=== PATIENT | female | born 2000 | race Two or more races ===

== ENCOUNTER 2024-07-18 03:14 | Emergency (ER) | payer BC, OTHER, SELFPAY ==
[2024-07-18] VITALS (12 sets, daily range): BP systolic 98–177; BP diastolic 64–90; PULSE 76–103; RESP 18; TEMP 36.6; O2SAT 91–100; BMI 25.6
[2024-07-18] MEDS: ondansetron 2 mg/ML SDV 2 mL 4 MG IVP (03:40)
--- NOTE | 2024-07-18 03:47 | W.ED.ABDPA2 ---
Documented by User: Fatuma Maloney MD 07/18/24 05:39 HPI - Abdominal Pain General: Chief Complaint: Abdominal Pain Stated Complaint: Pain in R side kidney area N/V,bleeding BM,fever Time Seen by Provider: 07/18/24 03:24 History of Present Illness: 24-year-old female who presents emergency room with nausea vomiting diarrhea and abdominal pain. She had some vomiting and she thought she might have some bright red blood in it. She had some right flank pain. She has had some diarrhea. She says she think she had a fever. She is afebrile here. Related Data Date of Last Menstrual Period: 06/20/24 Previous Rx's ?Medication ?Instructions ?Recorded cephalexin 500 mg capsule 500 mg PO TID #21 caps 06/09/24 ciprofloxacin HCl 500 mg tablet 500 mg PO BID #14 tabs 07/18/24 Allergies Allergy/AdvReac Type Severity Reaction Status Date / Time No Known Allergies Allergy Verified 07/18/24 03:28 Review of Systems Narrative: Constitutional symptoms: Negative except as documented in HPI. Skin symptoms: Negative except as documented in HPI. Eye symptoms: Negative except as documented in HPI. ENMT symptoms: Negative except as documented in HPI. Respiratory symptoms: Negative except as documented in HPI. Cardiovascular symptoms: Negative except as documented in HPI. Gastrointestinal symptoms: Negative except as documented in HPI. Genitourinary symptoms: Negative except as documented in HPI. Musculoskeletal symptoms: Negative except as documented in HPI. Neurologic symptoms: Negative except as documented in HPI. Psychiatric symptoms: Negative except as documented in HPI. Endocrine symptoms: Negative except as documented in HPI. PFS ED PFSH: Social History Smoking and tobacco/nicotine status: never used tobacco/nicotine Female Reproductive History: Date of last menstrual period: 06/20/24 Physical Exam Narrative: EXAM NARRATIVE: General: Alert, no acute distress. Skin: Warm, dry. Head: Normocephalic, atraumatic. Neck: Supple, trachea midline. Eye: Extraocular movements are intact. Ears, nose, mouth and throat: mucosa moist. Cardiovascular: Regular, Normal peripheral perfusion. Respiratory: Lungs are clear to auscultation, respirations are non-labored, breath sounds are equal, Symmetrical chest wall expansion. Gastrointestinal: Soft, Nontender, Non distended Musculoskeletal: Normal ROM, no deformity. Neurological: Alert and oriented, No focal neurological deficit observed. Psychiatric: Cooperative, appropriate mood & affect. Course Vital Signs: Vital signs: Vital Signs Temperature 97.8 F 07/18/24 03:23 Pulse Rate 89 07/18/24 06:30 Respiratory Rate 18 07/18/24 03:26 Blood Pressure 108/73 07/18/24 06:30 Pulse Oximetry 100 07/18/24 06:30 Oxygen Delivery Me thod Room Air 07/18/24 03:23 MDM - Abdominal Pain Medical Decision Making Medical decision making: Differential diagnosis for this patient with nausea and vomiting including but not limited to and based on the above HPI, review of systems and physical exam: Urinary tract infection. Appendicitis. Cholecystitis. Colitis. small bowel obstruction. crohn's flare. pancreatitis. gastritis. peptic ulcer. cyclic vomiting. Viral illness. Influenza. COVID. Patient care transition Dr. Fofana at shift change. Lab Data 07/18/24 03:34 07/18/24 03:34 Labs/Radiology: Radiology Impressions Abdomen/Pelvis CT 07/18/24 04:08 IMPRESSION: No acute findings. Laboratory Results WBC 11.84 10^3/uL (3.29-11.43) H 07/18/24 03:34 RBC 4.35 10^6/uL (3.85-5.65) 07/18/24 03:34 Hgb 12.20 g/dL (11.27-16.99) 07/18/24 03:34 Hct 35.0 % (36-47) L 07/18/24 03:34 MCV 80.5 fl (85-98) L 07/18/24 03:34 MCH 28.0 pg (27-33) 07/18/24 03:34 MCHC 34.9 g/dL (30-55) 07/18/24 03:34 RDW 14.8 % (12.1-15.1) 07/18/24 03:34 Plt Count 370 10^3/cmm (157-399) 07/18/24 03:34 MPV 9.8 fL (7.4-10.4) 07/18/24 03:34 Neut % (Auto) 76.6 % 07/18/24 03:34 Lymph % (Auto) 15.4 % 07/18/24 03:34 Canadian % (Auto) 6.3 % 07/18/24 03:34 Eos % (Auto) 0.8 % 07/18/24 03:34 Baso % (Auto) 0.3 % 07/18/24 03:34 Neut # (Auto) 9.06 10^3/uL (1.8-7.7) H 07/18/24 03:34 Lymph # (Auto) 1.8 10^3/uL (0.8-4.8) 07/18/24 03:34 Canadian # (Auto) 0.8 10^3/uL (0.2-0.9) 07/18/24 03:34 Eos # (Auto) 0.1 10^3/uL (0.0-0.8) 07/18/24 03:34 Baso # (Auto) 0.0 10^3/uL (0.0-0.1) 07/18/24 03:34 Nucleated RBC % (auto) 0 % 07/18/24 03:34 Nucleated RBCs # 0.0 /100WBC 07/18/24 03:34 Sodium 140 mmol/L (136-145) 07/18/24 03:34 Potassium 3.6 mmol/L (3.5-5.1) 07/18/24 03:34 Chloride 106 mmol/L (98-107) 07/18/24 03:34 Carbon Dioxide 23 mmol/L (22-29) 07/18/24 03:34 Anion Gap 14.6 (5-19) 07/18/24 03:34 BUN 15 mg/dL (6-20) 07/18/24 03:34 Creatinine 0.9 mg/dL (0.5-0.9) 07/18/24 03:34 GFR Calculation 76.9 mL/min (90-130) L 07/18/24 03:34 Glucose 118 mg/dL (65-115) H 07/18/24 03:34 Calculated Osmolality 292 mOsm/kg (285-295) 07/18/24 03:34 Calcium 9.1 mg/dL (8.5-10.5) 07/18/24 03:34 Total Bilirubin 0.4 mg/dL (0.15-1.2) 07/18/24 03:34 AST 16 U/L (0-32) 07/18/24 03:34 ALT 13 U/L (0-33) 07/18/24 03:34 Alkaline Phosphatase 51 U/L (35-105) 07/18/24 03:34 Total Protein 7.3 g/dL (6.6-8.7) 07/18/24 03:34 Albumin 4.5 g/dL (3.5-5.2) 07/18/24 03:34 Globulin 2.8 g/dL (1.3-4.6) 07/18/24 03:34 Lipase 32 U/L (13-60) 07/18/24 03:34 HCG, Qual Negative (Negative) 07/18/24 03:35 Urine Color Yellow (Yellow) 07/18/24 03:35 Urine Appearance Clear (CLEAR) 07/18/24 03:35 Urine pH 5 (5-7) 07/18/24 03:35 Ur Specific [place] 1.020 (1.005-1.030) 07/18/24 03:35 Urine Protein Trace (Negative) H 07/18/24 03:35 Urine Glucose (UA) Norm (Normal) 07/18/24 03:35 Urine Ketones Negative (Negative) 07/18/24 03:35 Urine Blood 3+ (Negative) A 07/18/24 03:35 Urine Nitrate Negative (Negative) 07/18/24 03:35 Urine Bilirubin Neg (Negative) 07/18/24 03:35 Urine Urobilinogen Neg mg/dL (Negative) 07/18/24 03:35 Ur Leukocyte Esterase Negative (Negative) 07/18/24 03:35 Urine RBC 51-100 /hpf (0-2) H 07/18/24 03:35 Urine WBC 0-5 /hpf (0-5) 07/18/24 03:35 Ur Squamous Epith Cells 0-5 /hpf (0-5) 07/18/24 03:35 Amorphous Sediment Not Reportable 07/18/24 03:35 Urine Bacteria None seen /hpf (NONE) 07/18/24 03:35 Hyaline Casts 0.81 /lpf 07/18/24 03:35 Influenza A (PCR) Negative (Negative) 07/18/24 03:44 Influenza Type B (PCR) Negative (Negative) 07/18/24 03:44 RSV (PCR) Negative (Negative) 07/18/24 03:44 SARS-CoV-2 (PCR) Negative (Negative) 07/18/24 03:44 Discharge Plan Discharge Patient Disposition: Home Clinical Impression: Cystitis Condition: Stable Prescriptions: New ciprofloxacin HCl 500 mg tablet 500 mg PO BID Qty: 14 0RF No Action cephalexin 500 mg capsule 500 mg PO TID Qty: 21 0RF Discharge Orders: Discharge ED (Routine); Ordered 07/18/24 Ordered By: Mahesh Fofana Discharge Diet: Usual diet Discharge Activity: Resume usual activity Patient Instructions: Opioid Safety, Pain Management, Urinary Tract Infection in Women (ED) Activity Restrictions/Additional Instructions: Thank you for choosing [facility] for your healthcare needs today. It is very important that you follow up as instructed or that you return to the Emergency Department should you have concerns or if your condition changes or worsens in any way. You were seen in the emergency room with complaint of abdominal and flank pain your CT was normal urine shows some blood suspicious for bladder infection given the history you gave of pain with urination and the flank pain. You are started on antibiotics Cipro 500 mg 1 tab pill twice a day for 7 days. Follow-up with your primary care doctor regarding the blood you had noticed in the stool, recommend you complete the workup that they had initiated for this issue. If you have worsening or changes symptoms recheck Print Language: Citizen Of [place] Sign Out Sign Out Data: Patient Sign Out occurred on 07/18/24 at 05:44. Patient's care was discussed, and care was transferred from Fatuma Maloney MD to Mahesh Fofana DO. Coding Level of Care Code ED Assurance Analyst for Chg Fwd Documented by User: Mahesh Fofana DO 07/18/24 06:58 HPI - Abdominal Pain General: Chief Complaint: Abdominal Pain Stated Complaint: Pain in R side kidney area N/V,bleeding BM,fever Time Seen by Provider: 07/18/24 03:24 Related Data Previous Rx's ?Medication ?Instructions ?Recorded cephalexin 500 mg capsule 500 mg PO TID #21 caps 06/09/24 ciprofloxacin HCl 500 mg tablet 500 mg PO BID #14 tabs 07/18/24 Allergies Allergy/AdvReac Type Severity Reaction Status Date / Time No Known Allergies Allergy Verified 07/18/24 03:28 [facility] ED PFSH: Social History Smoking and tobacco/nicotine status: never used tobacco/nicotine Course Vital Signs: Vital signs: Vital Signs Temperature 97.8 F 07/18/24 03:23 Pulse Rate 89 07/18/24 06:30 Respiratory Rate 18 07/18/24 03:26 Blood Pressure 108/73 07/18/24 06:30 Pulse Oximetry 100 07/18/24 06:30 Oxygen Delivery Me thod Room Air 07/18/24 03:23 MDM - Abdominal Pain Medical Decision Making Medical decision making: Differential diagnosis for this patient with nausea and vomiting including but not limited to and based on the above HPI, review of systems and physical exam: Urinary tract infection. Appendicitis. Cholecystitis. Colitis. small bowel obstruction. crohn's flare. pancreatitis. gastritis. peptic ulcer. cyclic vomiting. Viral illness. Influenza. COVID. Patient care transition Dr. Fofana at shift change. Care assumed at change of shift. Patient has hematuria. She also reports to me frequency of urination and dysuria on exam she has right-sided CVA tenderness. Her CT did not show any acute pathology. There is no evidence of renal stones normal bowel bladder gallbladder liver. Patient denies any vaginal discharge. She has been having some blood in the stool occasionally a noticeable amount and is getting an outpatient workup through her primary care doctor. She has not noticed any big change in that recently. She is about to get her period to start in the next week or so. 2 weeks ago she was seen and evaluated for possible STDs because of a history of unprotected intercourse with a partner. She has not had any intercourse since then. She is not having any vaginal discharge at this time. Serum qualitative hCG was negative. Based on her history and exam findings along with the hematuria we will go ahead and treat her for a bladder infection. She does have very slight elevation in her white count. Will start her on Cipro 500 twice daily for 7 days. Medical Records I reviewed the patient's medical records. Lab Data I reviewed the patient's lab results. 07/18/24 03:34 07/18/24 03:34 Labs/Radiology: Radiology Impressions Abdomen/Pelvis CT 07/18/24 04:08 IMPRESSION: No acute findings. Laboratory Results WBC 11.84 10^3/uL (3.29-11.43) H 07/18/24 03:34 RBC 4.35 10^6/uL (3.85-5.65) 07/18/24 03:34 Hgb 12.20 g/dL (11.27-16.99) 07/18/24 03:34 Hct 35.0 % (36-47) L 07/18/24 03:34 MCV 80.5 fl (85-98) L 07/18/24 03:34 MCH 28.0 pg (27-33) 07/18/24 03:34 MCHC 34.9 g/dL (30-55) 07/18/24 03:34 RDW 14.8 % (12.1-15.1) 07/18/24 03:34 Plt Count 370 10^3/cmm (157-399) 07/18/24 03:34 MPV 9.8 fL (7.4-10.4) 07/18/24 03:34 Neut % (Auto) 76.6 % 07/18/24 03:34 Lymph % (Auto) 15.4 % 07/18/24 03:34 Canadian % (Auto) 6.3 % 07/18/24 03:34 Eos % (Auto) 0.8 % 07/18/24 03:34 Baso % (Auto) 0.3 % 07/18/24 03:34 Neut # (Auto) 9.06 10^3/uL (1.8-7.7) H 07/18/24 03:34 Lymph # (Auto) 1.8 10^3/uL (0.8-4.8) 07/18/24 03:34 Canadian # (Auto) 0.8 10^3/uL (0.2-0.9) 07/18/24 03:34 Eos # (Auto) 0.1 10^3/uL (0.0-0.8) 07/18/24 03:34 Baso # (Auto) 0.0 10^3/uL (0.0-0.1) 07/18/24 03:34 Nucleated RBC % (auto) 0 % 07/18/24 03:34 Nucleated RBCs # 0.0 /100WBC 07/18/24 03:34 Sodium 140 mmol/L (136-145) 07/18/24 03:34 Potassium 3.6 mmol/L (3.5-5.1) 07/18/24 03:34 Chloride 106 mmol/L (98-107) 07/18/24 03:34 Carbon Dioxide 23 mmol/L (22-29) 07/18/24 03:34 Anion Gap 14.6 (5-19) 07/18/24 03:34 BUN 15 mg/dL (6-20) 07/18/24 03:34 Creatinine 0.9 mg/dL (0.5-0.9) 07/18/24 03:34 GFR Calculation 76.9 mL/min (90-130) L 07/18/24 03:34 Glucose 118 mg/dL (65-115) H 07/18/24 03:34 Calculated Osmolality 292 mOsm/kg (285-295) 07/18/24 03:34 Calcium 9.1 mg/dL (8.5-10.5) 07/18/24 03:34 Total Bilirubin 0.4 mg/dL (0.15-1.2) 07/18/24 03:34 AST 16 U/L (0-32) 07/18/24 03:34 ALT 13 U/L (0-33) 07/18/24 03:34 Alkaline Phosphatase 51 U/L (35-105) 07/18/24 03:34 Total Protein 7.3 g/dL (6.6-8.7) 07/18/24 03:34 Albumin 4.5 g/dL (3.5-5.2) 07/18/24 03:34 Globulin 2.8 g/dL (1.3-4.6) 07/18/24 03:34 Lipase 32 U/L (13-60) 07/18/24 03:34 HCG, Qual Negative (Negative) 07/18/24 03:35 Urine Color Yellow (Yellow) 07/18/24 03:35 Urine Appearance Clear (CLEAR) 07/18/24 03:35 Urine pH 5 (5-7) 07/18/24 03:35 Ur Specific [place] 1.020 (1.005-1.030) 07/18/24 03:35 Urine Protein Trace (Negative) H 07/18/24 03:35 Urine Glucose (UA) Norm (Normal) 07/18/24 03:35 Urine Ketones Negative (Negative) 07/18/24 03:35 Urine Blood 3+ (Negative) A 07/18/24 03:35 Urine Nitrate Negative (Negative) 07/18/24 03:35 Urine Bilirubin Neg (Negative) 07/18/24 03:35 Urine Urobilinogen Neg mg/dL (Negative) 07/18/24 03:35 Ur Leukocyte Esterase Negative (Negative) 07/18/24 03:35 Urine RBC 51-100 /hpf (0-2) H 07/18/24 03:35 Urine WBC 0-5 /hpf (0-5) 07/18/24 03:35 Ur Squamous Epith Cells 0-5 /hpf (0-5) 07/18/24 03:35 Amorphous Sediment Not Reportable 07/18/24 03:35 Urine Bacteria None seen /hpf (NONE) 07/18/24 03:35 Hyaline Casts 0.81 /lpf 07/18/24 03:35 Influenza A (PCR) Negative (Negative) 07/18/24 03:44 Influenza Type B (PCR) Negative (Negative) 07/18/24 03:44 RSV (PCR) Negative (Negative) 07/18/24 03:44 SARS-CoV-2 (PCR) Negative (Negative) 07/18/24 03:44 All radiology interpretation(s) finalized by discharge Discharge Plan Discharge Patient Disposition: Home Clinical Impression: Cystitis Condition: Stable Prescriptions: New ciprofloxacin HCl 500 mg tablet 500 mg PO BID Qty: 14 0RF No Action cephalexin 500 mg capsule 500 mg PO TID Qty: 21 0RF Discharge Orders: Discharge ED (Routine); Ordered 07/18/24 Ordered By: Mahesh Fofana Discharge Diet: Usual diet Discharge Activity: Resume usual activity Patient Instructions: Opioid Safety, Pain Management, Urinary Tract Infection in Women (ED) Activity Restrictions/Additional Instructions: Thank you for choosing [facility] for your healthcare needs today. It is very important that you follow up as instructed or that you return to the Emergency Department should you have concerns or if your condition changes or worsens in any way. You were seen in the emergency room with complaint of abdominal and flank pain your CT was normal urine shows some blood suspicious for bladder infection given the history you gave of pain with urination and the flank pain. You are started on antibiotics Cipro 500 mg 1 tab pill twice a day for 7 days. Follow-up with your primary care doctor regarding the blood you had noticed in the stool, recommend you complete the workup that they had initiated for this issue. If you have worsening or changes symptoms recheck Print Language: Citizen Of [place] Sign Out Sign Out Data: Patient Sign Out occurred on 07/18/24 at 05:44. Patient's care was discussed, and care was transferred from Fatuma Maloney MD to Mahesh Fofana DO. Coding Level of Care Code ED Assurance Analyst for Rach Moore
[2024-07-18 03:52] LABS: Basophils % 0.3 %; Eosinophils # 0.1 10^3/uL (0.0-0.8); Eosinophils % 0.8 %; Lymphocytes # 1.8 10^3/uL (0.8-4.8); Lymphocytes % 15.4 %; Mean Corpuscular HGB Conc 34.9 g/dL (30-55); Mean Corpuscular Volume 80.5 fl (85-98); Mean Platelet Volume 9.8 fL (7.4-10.4); Monocytes # 0.8 10^3/uL (0.2-0.9); Monocytes % 6.3 %; Neutrophils # 9.06 10^3/uL (1.8-7.7); Neutrophils % 76.6 %; Nucleated Red Blood Cells % 0 %; Platelet Count 370 10^3/cmm (157-399); Red Blood Count 4.35 10^6/uL (3.85-5.65); Red Cell Distribution Width 14.8 % (12.1-15.1); White Blood Count 11.84 10^3/uL (3.29-11.43)
[2024-07-18 03:56] LABS: HCG Qualitative Urine. Negative (Negative)
[2024-07-18 03:57] LABS: Bacteria Urine None Seen /hpf; Hyaline Casts Urine 0.81 /lpf; RBC Urine 51-100 /hpf (0-2); Squamous Epithelial Cell Urine 0-5 /hpf (0-5); WBC Urine 0-5 /hpf (0-5)
[2024-07-18 04:00] LABS: Bilirubin Urine Neg (Negative); Blood Urine 3+ (Negative); Glucose Urine UA Norm (Normal); Ketones Urine Negative (Negative); Leukocyte Esterase Urine Negative (Negative); Nitrate Urine Negative (Negative); Protein Urine Trace (Negative); Urine Appearance Clear (CLEAR); Urine Color Yellow (Yellow); Urobilinogen Urine Neg (Negative); pH Urine 5 (5-7)
[2024-07-18 04:01] LABS: Add Urine Culture? Yes
--- NOTE | 2024-07-18 04:08 | CTR_ITS ---
PROCEDURE INFORMATION: Exam: CT Abdomen And Pelvis Without Contrast Exam date and time: 07/18/2024 4:17 AM Age: 24 years old Clinical indication: Abdominal pain; Flank; Lower; Additional info: Flank pain TECHNIQUE: Imaging protocol: Computed tomography of the abdomen and pelvis without contrast. Radiation optimization: All CT scans at this facility use at least one of these dose optimization techniques: automated exposure control; mA and/or kV adjustment per patient size (includes targeted exams where dose is matched to clinical indication); or iterative reconstruction. COMPARISON: No relevant prior studies available. RADIATION DOSE METRICS: Total DLP (mGy-cm): 465.26 FINDINGS: Liver: Normal. No mass. Gallbladder and biliary ducts: Normal. No calcified stones. No ductal dilation. Pancreas: Normal. No ductal dilation. Spleen: Normal. No splenomegaly. Adrenal glands: Normal. No mass. Kidneys and ureters: Normal. No hydronephrosis. Stomach and bowel: Unremarkable. No obstruction. No mucosal thickening. Appendix: No evidence of appendicitis. Intraperitoneal space: Small amount of free fluid in the cul-de-sac. Vasculature: Unremarkable. No abdominal aortic aneurysm. Lymph nodes: Unremarkable. No enlarged lymph nodes. Urinary bladder: Unremarkable as visualized. Reproductive: Unremarkable as visualized. Bones/joints: Unremarkable. No acute fracture. Soft tissues: Unremarkable. CT/CT kidney stone [id number] IMPRESSION: No acute findings.
[2024-07-18 04:10] LABS: Alanine Aminotransferase 13 U/L (0-33); Albumin Level 4.5 g/dL (3.5-5.2); Alkaline Phosphatase 51 U/L (35-105); Anion Gap 14.6 (5-19); Aspartate Amino Transferase 16 U/L (0-32); Blood Urea Nitrogen 15 mg/dL (6-20); Calcium 9.1 mg/dL (8.5-10.5); Carbon Dioxide 23 mmol/L (22-29); Chloride 106 mmol/L (98-107); Globulin 2.8 g/dL (1.3-4.6); Glomerular Filtration Rate 76.9 mL/min (90-130); Glucose 118 mg/dL (65-115); Lipase 32 U/L (13-60); Osmolality Calculated 292 mOsm/kg (285-295); Potassium 3.6 mmol/L (3.5-5.1); Sodium 140 mmol/L (136-145); Total Bilirubin 0.4 mg/dL (0.15-1.2); Total Protein 7.3 g/dL (6.6-8.7)
[2024-07-18 04:31] LABS: Influenza A NEGATIVE (Negative); Influenza B NEGATIVE (Negative); Respiratory Syncytial Virus Ce NEGATIVE (Negative); SARS-CoV-2 PCR NEGATIVE (Negative)
== END 2024-07-18 07:16 | disposition home or self-care (01) ==
PROVIDERS: Emergency Medicine; Emergency Provider Family Medicine
DX: N30.90 Cystitis, unspecified without hematuria (principal); Z11.52 Encounter for screening for COVID-19
CPT/HCPCS: 36415; 74176; 80053; 81001; 81025; 83690; 85025; 87086; 87637; 96374; 99285; J2405

== ENCOUNTER → 2024-08-22 10:47 | Outpatient (BNVA) | payer BC, OTHER, SELFPAY | PROVIDERS: PCP Family Medicine; Referring Provider Family Medicine; Visit Provider Internal Medicine Rheumatology | DX: M79.7 Fibromyalgia (principal) | CPT/HCPCS: 36415; 82085; 82306; 82550; 82728; 83540; 83550; 85651; 86140; 86200; 86431; 86480; 86704; 86803; 86812; 87340 ==

== ENCOUNTER 2024-09-06 10:30 | Outpatient (CLI) | payer BC, OTHER, SELFPAY ==
--- NOTE | 2024-09-06 10:45 | US_ITS ---
WS: [id number] Complete ABDOMINAL ULTRASOUND HISTORY: R10.2 - Pelvic and perineal pain COMPARISON: CT 07/18/2024 Liver: 13.7 cm in length. Normal size liver and echogenicity. No bile duct dilatation or mass. Portal Vein: Normal hepatopetal flow with monophasic waveform. Gallbladder: Normally distended gallbladder with no stones or wall thickening. CBD: 0.3 cm Pancreas: Normal size and echogenicity. Right kidney: 9.9 cm x 5.2 x 5.1 cm. Cortex:1.0 cm. Normal size and echogenicity. No hydronephrosis or mass. Left kidney: 10.9 cm x 4.6 cm x 5.0 cm. Cortex: 1.1 cm. Normal size and echogenicity. No hydronephrosis or mass. Spleen: 9.0 cm. Normal size and echogenicity. Aorta and IVC: Unremarkable abdominal aorta and IVC. US/US abdomen complete* [id number] Impression: Normal complete abdomen ultrasound.
--- NOTE | 2024-09-06 11:30 | US_ITS ---
WS: [id number] ULTRASOUND SOFT TISSUES bilateral cervical chains. HISTORY: R59.9 - Enlarged lymph nodes, unspecified COMPARISON: None available. TECHNIQUE: 2-D and color Doppler imaging is submitted. Normal-appearing lymph nodes noted bilaterally along the cervical chains. Normal fatty hilum with no cortical thickening or asymmetry. Central flow to the lymph nodes. US/US soft tissue head neck [id number] IMPRESSION: Normal-appearing bilateral cervical chain lymph nodes.
== END 2024-09-06 10:31 | disposition home or self-care (01) ==
LOC: RAD 10:32
PROVIDERS: PCP Family Medicine; Visit Provider Internal Medicine Rheumatology
DX: R10.2 Pelvic and perineal pain (principal); R59.9 Enlarged lymph nodes, unspecified; M54.2 Cervicalgia
CPT/HCPCS: 76536; 76700

== ENCOUNTER 2025-01-01 09:30 | Emergency (ER) | payer OTHER, SELFPAY ==
[2025-01-01 09:35] VITALS: BP 127/82; PULSE 92; TEMP 36.8; O2SAT 99; BMI 26.4
--- NOTE | 2025-01-01 09:35 | ECG_ITS ---
[email or web address] Test Date: 2025-01-01 Pat Name: Felicia Burton Department: Room: Gender: Female Acute Specialist: : [id number] Requested By: Mahesh Guardado Order Number: [id number] Swathi MD: Nadia Jensen M.D. Measurements Intervals [place] Rate: 87 P: 64 NM: 132 QRS: 58 QRSD: 87 T: 51 QT: 352 QTc: 424 Interpretive Statements SINUS RHYTHM POSSIBLE LEFT ATRIAL ENLARGEMENT [-0.1mV P-WAVE IN V1/V2] LOW QRS VOLTAGE IN PRECORDIAL LEADS [QRS DEFLECTION < 1.0 mV IN CHEST LEADS] No previous ECG available for comparison Electronically Signed On 01-01-2025 13:42:58 CDT by Nadia Jensen M.D. [email or web address]
--- NOTE | 2025-01-01 09:35 | XR_ITS ---
WS: [id number] XR chest 1V portable [id number] REASON FOR EXAM: dyspnea/cough FINDINGS: The heart and mediastinum are within normal limits. Calcified granulomatous disease bilaterally. No acute pulmonary parenchymal or pleural abnormality. Bony thorax is intact without significant focal abnormality. XR/XR chest 1V portable [id number] IMPRESSION: No acute chest abnormality.
--- OUTSIDE RECORDS SUMMARY | 2025-01-01 09:39 | XMS_ITS | Clinical Summary ---
Author Organization [facility] Address [address] [address] Phone Care Team Providers Care Vendor Representatives Name Role Phone Jeff Valentine Primary Care Provider [phone] Allergies No known active allergies Medications lisdexamfetamine (Vyvanse) 30 mg capsule Take 30 mg by mouth 1 (one) time each day in the morning. Active famotidine (Pepcid) 10 mg tablet Take by mouth. Active escitalopram (Lexapro) 20 mg tablet Take 20 mg by mouth 1 (one) time each day. Active hydrOXYzine pamoate (Vistaril) 25 mg capsule Take 25 mg by mouth 3 (three) times a day if needed. Active cyclobenzaprine (Flexeril) 10 mg tablet Take 1 tablet (10 mg total) by mouth 3 (three) times a day for 15 days. 45 tablet 12/12/2023 Active Active Problems Problem Noted Date Diagnosed Date Acquired hypothyroidism 12/12/2023 Acute otitis media 12/12/2023 Anxiety 12/12/2023 Chronic fatigue, unspecified 12/12/2023 Diarrhea 12/12/2023 Facial weakness 12/12/2023 Migraine headache 12/12/2023 Migraine without aura and wi thout status migrainosus, not intractable 12/12/2023 Non-seasonal allergic rhinitis due to pollen Other complicated headache syndrome 12/12/2023 Thyromegaly 12/12/2023 Vision changes 12/12/2023 Vitamin D deficiency 12/12/2023 Weakness of both lower extremities 12/12/2023 Sprain of left ankle 11/17/2021 Cervical strain 05/11/2020 Concussion with no loss of consciousness 021 Head injury, initial encounter 05/11/2020 Seasonal allergic rhinitis 08/26/2011 Social History Tobacco Use Types Packs/Day Years Used Date Smoking Tobacco: Never Smokeless Tobacco: Never Tobacco Cessation:Counseling Given: Not Answered Alcohol Use Standard Drinks/Week Comments Yes 0 (1 standard drink = 0.6 oz pur e alcohol) occasional PHQ-2 Answer Date Recorded Patient Health Questionnaire-2 Score 0 12/12/2023 [facility] - Mental Health Answer Date Recorde d Little interest or pleasure in doing things Not at all 12/12/2023 Feeling down, depressed, or hopeless Not at all 12/12/2023 Feeling of Stress Not on file 12/12/2023 Comments Unknown Sex and Gender Information Value Date Recorded Sex Assigned at Not on file Legal Sex Female 10:50 AM CDT Gender Identity Not on file Sexual Orientation Not on file Last Filed Vital Signs Vital Sign Reading Time Taken Comments Blood Pressure 110/72 12/12/2023 2:34 PM CDT Pulse 92 12/12/2023 2:34 PM CDT Temperature 36.9 C (98.5 F) 12/12/2023 2:34 PM CDT Respiratory Rate - - Oxygen Saturation 97% 12/12/2023 2:34 PM CDT Inhaled Oxygen Concentration - - Weight 62.6 kg (138 lb) 12/12/2023 2:34 PM CDT Height 157.5 cm (5' 2 ) 12/12/2023 2:34 PM CDT Body Mass Index 25.24 12/12/2023 2:34 PM CDT Plan of Treatment Health Maintenance Due Date Last Done Comments MMR Vaccines (1 of 1 - Standard series) 2001 IPV Vaccines (4 of 4 - 4-dose series) 2004 03/06/2001, 2000, 2000 Varicella Vaccines (1 of 2 - 13+ 2-dose series) 2013 HPV Vaccines (1 - 3-dose series) 2015 Depression Screening 2018 Social Drivers of Health (SDoH) 2018 Hepatitis B Vaccines (1 of 3 - 19+ 3-dose series) 2019 Pap Smear 2021 COVID-19 Vaccine ( - season) 2024 Influenza Vaccine (#1) 2024 03/17/2021 DTaP,Tdap,and Td Vaccines (7 - Td or Tdap) 10/31/2033 11/01/2023, 11/14/2013, 01/07/2003, Additional history exists Pneumococcal Vaccine: 50+ Years (1 of 1 - PCV) 2050 Zoster Vaccines (1 of 2) 2050 05/31/2001 RSV Vaccines (1 - 1-dose 75+ series) 2075 HIB Vaccines Aged Out No longer eligi ble based on patient's age to complete this topic Hepatitis A Vaccines Aged Out No long er eligible based on patient's age to complete this topic Meningococcal B Vaccine Aged Out No l onger eligible based on patient's age to complete this topic Meningococcal Vaccine Aged Out No jennifer kari eligible based on patient's age to complete this topic Pneumococcal Vaccine Aged Out No long er eligible based on patient's age to complete this topic Rotavirus Vaccines Aged Out No longer eligible based on patient's age to complete this topic Insurance [facility] Care Teams Vendor Representatives Relationship Specialty Start Date End Date Jeff Valentine [address] [place] [address] PCP - General 12/12/23
--- OUTSIDE RECORDS SUMMARY | 2025-01-01 09:39 | XMS_ITS | Clinical Summary ---
Author Organization [facility] (Formerly [facility]) [place] Address [address] [place] [address] Care Team Providers Care Cleaning Professional Name Role Phone Hipolito Flores MD Primary Care Provider + Allergies No known active allergies Medications ibuprofen (MOTRIN) 200 mg Oral Cap Take 1 Cap by mouth every 6 hours as needed. Active acetaminophen (TYLENOL EXTRA STRENGTH) 500 mg Oral tablet Take 500 mg by mouth every 6 hours as needed. Active diphenhydrAMINE (BENADRYL ALLERGY) 25 mg tablet Take 25 mg by mouth every 6 hours as needed. Active albuterol HFA 90 mcg inhaler Take 1-2 Puffs by inhalation every 4 hours as needed for Shortness of Breath or Wheezing (or excessive coughing). 8.5 Gram 5 7 Active SUDOGEST 12-HOUR 120 mg Extended Release 12 hour tablet TAKE 1 TABLET BY MOUTH TWICE DAILY NEEDED FOR COUGH 60 Tablet 7 Active acetaminophen-c affeine-butalbi abilio (FIORICET) 325-40-50 mg tablet Take 1 Tablet by mouth every 4 hours as needed for Migraine. 30 Tablet 6 8 Active clindamycin HCl (CLEOCIN) 300 mg Capsule Take 1 Capsule (300 mg) by mouth 3 times daily. 30 Capsule 8 Active Active Problems Problem Noted Date Diagnosed Date Seasonal allergic rhinitis 08/26/2011 Immunizations Immunization Administration Dates Next Due (ADACEL/BOOSTRIX)(10 YR UP) TDAP VACCINE, 0.5ML, IM 11/14/2013 (HAVRIX/VAQTA)(12 MO-18 YRS) HEPATITIS A VACCINE 0.5 ML PED/ADOL 2 DOSE, IM 11/14/2013 (M-M-R II/PRIORIX)(12 MO UP) MEASLES, MUMPS AND RUBELLA VIRUS VACCINE, 0.5 ML IM/SUBCUT 05/31/2001 (VARIVAX)(12 MOS UP)VARICELL A VIRUS VACCINE (PF) 0.5 ML, SUB CUT 05/31/2001 Dt Dtp Dtap Vaccine 01/07/2003, 3,03/06/2001,10/11,2000 HIB, Unspecified Formulation 03/06/2001,10/12/19 01,2000 Hepatitis B Vaccine 03/06/2001,2000,2000 IPV/OPV 03/06/2001,2000,2000 Meningococcal A Conjugate Vaccine IM 11/21/2017, 11/14/2013 Family History Medical History Relation Name Comments Thyroid Disease Mother Relation Name Status Comments Mother Alive Social History Tobacco Use Types Packs/Day Years Used Date Smoking Tobacco: Never Smokeless Tobacco: Never Alcohol Use Standard Drinks/Week Comments No 0 (1 standard drink = 0.6 oz pur e alcohol) Comments No Sex and Gender Information Value Date Recorded Sex Assigned at Not on file 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 Gender Identity Not on file Sexual Orientation Not on file Last Filed Vital Signs Vital Sign Reading Time Taken Comments Blood Pressure 90/58 11/21/2017 1:34 PM CDT Pulse 86 11/21/2017 1:34 PM CDT Temperature 36.7 C (98 F) 11/21/2017 1:34 PM CDT Respiratory Rate 20 11/21/2017 1:34 PM CDT Oxygen Saturation 97% 11/21/2017 1:34 PM CDT Inhaled Oxygen Concentration - - Weight 58.5 kg (129 lb) 11/21/2017 1:34 PM CDT Height 154.9 cm (5' 1 ) 11/21/2017 1:34 PM CDT Body Mass Index 24.37 11/21/2017 1:34 PM CDT Plan of Treatment Health Maintenance Due Date Last Done Comments HPV VACCINES (1 - 3-dose series) 2015 CERVICAL CANCER SCREENING 2021 HPV/Cotest (21-29) 2021 PAP SMEAR 2021 DTAP/TDAP/TD VACCINES (6 - T d or Tdap) 11/15/2023 11/14/2013, 01/07/2003, 01/06/2003, Additional history exists INFLUENZA VACCINE (#1) 2024 HEPATITIS B VACCINES Completed 03/06/2001, 2000, 2000 Insurance [facility] [employer] [facility] Care Teams Cleaning Professional Relationship Specialty Start Date End Date Hipolito Flores MD PCP - General Family Practice 05/02/11
--- OUTSIDE RECORDS SUMMARY | 2025-01-01 09:39 | XMS_ITS | Encounter Summary ---
Author Organization [facility] Address [address] López: Epic [place] [address] Care Team Providers Care Blueprint Assembler Name Role Phone Hipolito Flores MD Primary Care Provider + Encounter Details Date Type Department Care Team (Latest Contact Info) Description 07/17/2001 Emergency [facility], Physician NO ADDRESS ON FILE Social History Tobacco Use Types Packs/Day Years Used Date Smoking Tobacco: Never Assessed Comments Unknown Sex and Gender Information Value Date Recorded Sex Assigned at Not on file Legal Sex Female 4:32 AM HEATING OPERATORS ENGINEER Gender Identity Not on file Sexual Orientation Not on file documented as of this encounter Plan of Treatment Not on file documented as of this encounter Visit Diagnoses Not on filedocumented in this encounter Care Teams Blueprint Assembler Relationship Specialty Start Date End Date Hipolito Flores MD PCP - General Family Practice 05/02/11 documented as of this encounter
--- OUTSIDE RECORDS SUMMARY | 2025-01-01 09:39 | XMS_ITS | Encounter Summary ---
Author Organization [facility] Address [address] [place] [address] Care Team Providers Care Doweling Machine Operator Name Role Phone Hipolito Flores MD Primary Care Provider + Encounter Details Date Type Department Care Team (Latest Contact Info) Description 01/30/2003 Outpatient Historical [facility] Family Medicine- [place] [address] [place] [address] Stefano Smith MD [address] [phone] Routine child health exam (Primary Dx) Social History Tobacco Use Types Packs/Day Years Used Date Smoking Tobacco: Never Assessed Comments Unknown Sex and Gender Information Value Date Recorded Sex Assigned at Not on file Legal Sex Female 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
--- OUTSIDE RECORDS SUMMARY | 2025-01-01 09:39 | XMS_ITS | Clinical Summary ---
Author Organization [facility] Address [address] [place] [address] Phone Care Team Providers Care Salvager Helper Name Role Phone Ester Fernández MD Primary Care Provider Unavailab le Allergies No known active allergies Medications albuterol sulfate HFA 90 mcg/actuation aerosol inhaler Take 2 Puffs by inhalation every 6 hours as needed for Shortness of Breath. 8.5 Gram 01/25/20 23 Active hydrOXYzine HCL (ATARAX) 25 mg tabletIndicatio ns:ESTRELLA (generalized anxiety disorder) Take 1 Tablet (25 mg) by mouth 3 times daily as needed for Anxiety. 90 Tablet 1 12/05/19 24 Active omeprazole (PriLOSEC) 20 mg Capsule, Delayed Release(E.C.)In dications:Gastr oesophageal reflux disease, unspecified whether esophagitis present,LUQ abdominal pain Take 1 Capsule (20 mg) by mouth daily. 30 Capsule 1 09/11/19 25 Active sodium, potassium and magnesium SULFATES (Suprep Bowel Prep Kit) 17.5-3.13-1.6 gram Recon Soln Take 177 mL by mouth see administration instructions. 354 mL 09/13/19 25 Active simethicone 125 mg Tablet, Chewable Take 1 Tablet (125 mg) by mouth see administration instructions. Take as directed 3 Tablet 09/13/19 25 Active topiramate (Topamax) 25 mg tablet Take 1 Tablet (25 mg) by mouth daily at bedtime. 90 Tablet 3 10/23/19 25 Active ondansetron (ZOFRAN) 8 mg Tablet Take 1 Tablet (8 mg) by mouth every 8 hours as needed for Nausea/Emesis. 30 Tablet 5 10/23/19 25 Active SUMAtriptan (Imitrex) 100 mg tablet Take 1 tablet at onset of migraine. may repeat in 2 hours; max dose 200mg in 24 hours 9 Tablet 11 10/23/19 25 Active Active Problems Problem Noted Date Diagnosed Date Irritable bowel syndrome wit h both constipation and diarrhea 09/18/2024 Sprain of left ankle 11/17/2021 Concussion with no loss of consciousness 021 Head injury, initial encounter 05/11/2020 Seasonal allergic rhinitis 08/26/2011 Encounters Date Type Department Care Team Description 12/31/2024 External Device Data [facility] ABSTRACTION Provider, Abstract 10/30/2024 External Device Data [facility] ABSTRACTION Provider, Abstract 10/29/2024 External Device Data [facility] ABSTRACTION Provider, Abstract 10/22/2024 10:45 AM CDT Office Visit [place] [address] [place] [address] Nabila Evans MD Migraine without aura and without status migrainosus, not intractable (Primary Dx) 10/14/2024 Refill [place] [address] [place] [address] Nabila Evans MD 10/14/2024 Refill [place] [address] [place] [address] Nabila Evans MD 10/01/2024 External Device Data [facility] ABSTRACTION Provider, Abstract from Last 3 Months Immunizations Immunization Administration Dates Next Due (ADACEL/BOOSTRIX)(10 [...] Family History Medical History Relation Name Comments Anemia Mother Maris Burton Asthma Mother Maris Burton Thyroid Disease Mother Maris Burton Breast Cancer Paternal Grandmother over a ge 50 Relation Name Status Comments Father Syed Alive Mother Maris Burton Alive Paternal Grandmother Social History Tobacco Use Types Packs/Day Years Used Date Smoking Tobacco: Never Smokeless Tobacco: Never Tobacco Cessation:Counseling Given: Not Answered Alcohol Use Standard Drinks/Week Comments Yes 2 (1 standard drink = 0.6 oz pur e alcohol) social Feeling Safe Answer Date Recorded Are you in a relationship wi th someone who hurts you emotionally and/or physically? No 09/18/2024 Comments No Sex and Gender Information Value Date Recorded Sex Assigned at Not on file Legal Sex Female 1:49 AM SHOP GIRL Gender Identity Not on file Sexual Orientation Not on file Occupation Industry Job Start Date Job End Date Not on file Not on file Not on file Not on file Last Filed Vital Signs Vital Sign Reading Time Taken Comments Blood Pressure 116/64 10/22/2024 10:24 AM CDT Pulse 64 10/22/2024 10:24 AM CDT Temperature 37.1 C (98.8 F) 08/15/2023 4:35 PM CDT Respiratory Rate 16 10/22/2024 10:24 AM CDT Oxygen Saturation 96% 10/22/2024 10:24 AM CDT Inhaled Oxygen Concentration - - Weight 69.9 kg (154 lb 3.2 oz) 10/22/2024 10:24 AM CDT Height 160 cm (5' 3 ) 09/10/2024 7:47 AM CDT Body Mass Index 27.32 09/10/2024 7:47 AM CDT Plan of Treatment Health Maintenance Due Date Last Done Comments HPV VACCINES (1 - 3-dose series) 2015 HPV/Cotest (21-29) 2021 DTAP/TDAP/TD VACCINES (6 - T d or Tdap) 11/15/2023 11/14/2013, 01/07/2003, 01/06/2003, Additional history exists INFLUENZA VACCINE (#1) 2024 CERVICAL CANCER SCREENING 01/14/2025 PAP SMEAR 01/14/2025 01/14/2022 HEPATITIS B VACCINES Completed 03/06/2001, 2000, 2000, Additional history exists COVID-19 Vaccine Discontinued 03/17/2021, 08/2020, 07/22/2020 Procedures Procedure Name Priority Date/Time Associated Diagnosis Comments CERV/VAG CYTO AGE BASED SCREEN PAP W CT/NG Routine 01/14/2022 10:11 AM CDT Encounter for gynecological examination without abnormal finding Encounter for screening examination for sexually transmitted disease from Last 3 Months or Most Recently Relevant to Health Maintenance Results * CERV/VAG CYTO AGE BASED SCREEN PAP W CT/NG (01/14/2022 10:11 AM CDT) COMMENT (PAP): [facility] Comment: This order for age-based cervical cancer and STI screening follows ACOG guidelines(PB 168, 140, PYH438). See individual assays for performing site location. CLINICAL INFORMATION [facility] [place] Comment:SCREENING LAST MENSTRUAL PERIOD [facility] Comment:NONE GIVEN PREV PAP: [facility] [place] Comment:NONE GIVEN PREV BX: [facility] [place] Comment:NONE GIVEN SOURCE [facility] [place] Comment:Endocervix ADEQUACY: [facility] Comment: Satisfactory for evaluation. Endocervical/transformation zone component present. Age and/or menstrual status not provided PAP INTERP [facility] Comment:Negative for intraep ithelial lesion or malignancy. COMMENT (PAP TEST) [facility] [place] Comment: This Pap test has been evaluated with computer assisted technology. EXECUTIVE VICE PRESIDENT AND CHIEF FINANCIAL OFFICER: [facility] [place] Comment: YQ, CT(ASCP) CT screening location: [place] [address] [address] [id number] EXPLANATORY NOTE [facility] [place] Comment: EXPLANATORY NOTE: The Pap is a screening test for cervical cancer. It is not a diagnostic test and is subject to false negative and false positive results. It is most reliable when a satisfactory sample, regularly obtained, is submitted with relevant clinical findings and history, and when the Pap result is evaluated along with historic and current clinical information. C TRAC RNA NOT DETECTED NOT DETECTED [facility] N.GONORRHOEAE RNA, TMA NOT DETECTED NOT DETECTED [facility] COMMENT INFECTIOUS DISEASE [facility] [place] Comment: The analytical performance characteristics of this assay, when used to test SurePath(TM) specimens have been determined by [facility]. The modifications have not been cleared or approved by the FDA. This assay has been validated pursuant to the CLIA regulations and is used for clinical purposes. For additional information, please refer to https://education.E-Blink/faq/MOY773 (This link is being provided for information/ educational purposes only.) Test Performed at: [facility] [address] [place] [address] Jeff Jiménez D.O., MPH SL Genital SWAB OF ENDOCERVIX / Unknown 01/14/2022 10:11 AM CDT 01/17/2022 3:42 AM CDT Ashley HENDERSON PATHOLOGY/CYTOLOGY ORDERABLES Final Result [facility] [phone] [facility] [address] [place] [address] from Last 3 Months or Most Recently Relevant to Health Maintenance Insurance [address] [place] [address] [facility] CHOICE CHOICE [id number] CHOICE [id number] Advance Directives For more information, please contact: [phone] * Full Code (Latest Code Status on File) Date Activated Date Inactivated Comments 09/18/2024 12:55 PM 09/18/2024 5:46 PM Care Teams Salvager Helper Relationship Specialty Start Date End Date Ester Fernández MD PCP - General Internal Medicine 10/28/22
--- OUTSIDE RECORDS SUMMARY | 2025-01-01 09:39 | XMS_ITS | Encounter Summary ---
Author Organization [facility] Address [address] [place] [address] Care Team Providers Care Bone Crusher Name Role Phone Hipolito Flores MD Primary Care Provider + Encounter Details Date Type Department Care Team (Latest Contact Info) Description 05/24/2002 Outpatient Historical [facility] Family Medicine- [place] [address] [place] [address] Stefano Smith MD [address] [phone] OTITIS MEDIA NOS (Primary Dx); ACUTE URI NOS Social History Tobacco Use Types Packs/Day Years Used Date Smoking Tobacco: Never Assessed Comments Unknown Sex and Gender Information Value Date Recorded Sex Assigned at Not on file Legal Sex Female 4:32 AM IT TRAINEE Gender Identity Not on file Sexual Orientation Not on file documented as of this encounter Plan of Treatment Not on file documented as of this encounter Visit Diagnoses Diagnosis Unspecified otitis media- Primary Acute upper respiratory infections of unspecified site documented in this encounter Care Teams Bone Crusher Relationship Specialty Start Date End Date Hipolito Flores MD PCP - General Family Practice 05/02/11 documented as of this encounter
--- OUTSIDE RECORDS SUMMARY | 2025-01-01 09:39 | XMS_ITS | Encounter Summary ---
Author Organization [facility] Address [address] Olivasn: Epic [place] [address] Care Team Providers Care Brim Pouncing Machine Operator Name Role Phone Hipolito Flores MD Primary Care Provider + Encounter Details Date Type Department Care Team (Latest Contact Info) Description 03/25/2001 Emergency BeardenCas MD NO ADDRESS ON FILE Social History Tobacco Use Types Packs/Day Years Used Date Smoking Tobacco: Never Assessed Comments Unknown Sex and Gender Information Value Date Recorded Sex Assigned at Not on file Legal Sex Female 4:32 AM PARTS COUNTER SALES PERSON Gender Identity Not on file Sexual Orientation Not on file documented as of this encounter Plan of Treatment Not on file documented as of this encounter Visit Diagnoses Not on filedocumented in this encounter Care Teams Brim Pouncing Machine Operator Relationship Specialty Start Date End Date Hipolito Flores MD PCP - General Family Practice 05/02/11 documented as of this encounter
--- OUTSIDE RECORDS SUMMARY | 2025-01-01 09:39 | XMS_ITS | Encounter Summary ---
Author Organization [facility] Address [address] [place] [address] Care Team Providers Care Jewel Hole Rough Opener Name Role Phone Ester Fernández MD Primary Care Provider William le Encounter Details Date Type Department Care Team (Late st Contact Info) Description 12/31/2024 External Device Data [facility] ABSTRACTION Provider, Abstract NO ADDRESS ON FILE Social History Tobacco Use Types Packs/Day Years Used Date Smoking Tobacco: Never Smokeless Tobacco: Never Alcohol Use Standard Drinks/Week Comments Yes 2 (1 standard drink = 0.6 oz pur e alcohol) social Feeling Safe Answer Date Recorded Are you in a relationship wi th someone who hurts you emotionally and/or physically? No 09/18/2024 Comments No Sex and Gender Information Value Date Recorded Sex Assigned at Not on file Legal Sex Female 1:49 AM ICER MACHINE OPERATOR Gender Identity Not on file Sexual Orientation Not on file Occupation Industry Job Start Date Job End Date Not on file Not on file Not on file Not on file documented as of this encounter Plan of Treatment Not on file documented as of this encounter Visit Diagnoses Not on filedocumented in this encounter Additional Health Concerns Assessment Noted Time PHQ-9 Depression Total Score: 5 12/05/19 24 10:00 AM CDT documented as of this encounter Care Teams Jewel Hole Rough Opener Relationship Specialty Start Date End Date Ester Fernández MD PCP - General Internal Medicine 10/28/22 documented as of this encounter
--- OUTSIDE RECORDS SUMMARY | 2025-01-01 09:39 | XMS_ITS | Encounter Summary ---
Author Organization [facility] Address [address] [place] [address] Care Team Providers Care Senior Licensing Manager Name Role Phone Hipolito Flores MD Primary Care Provider + Encounter Details Date Type Department Care Team (Latest Contact Info) Description 01/08/2003 Outpatient Historical [facility] Family Medicine- [place] [address] [place] [address] Stefano Smith MD [address] [phone] ADV EFFECT MED/BIOL SUB NOS (Primary Dx) Social History Tobacco Use Types Packs/Day Years Used Date Smoking Tobacco: Never Assessed Comments Unknown Sex and Gender Information Value Date Recorded Sex Assigned at Not on file Legal Sex Female 4:32 AM INFECTION CONTROL COORDINATOR Gender Identity Not on file Sexual Orientation Not on file documented as of this encounter Plan of Treatment Not on file documented as of this encounter Visit Diagnoses Diagnosis Other and unspecified adverse effect of drug, medicinal and biological substance- Primary documented in this encounter Care Teams Senior Licensing Manager Relationship Specialty Start Date End Date Hipolito Flores MD PCP - General Family Practice 05/02/11 documented as of this encounter
--- OUTSIDE RECORDS SUMMARY | 2025-01-01 09:39 | XMS_ITS | Encounter Summary ---
Author Organization [facility] Address [address] [place] [address] Care Team Providers Care Assistant Professor Surgical Technology Name Role Phone Hipolito Flores MD Primary Care Provider + Encounter Details Date Type Department Care Team (Latest Contact Info) Description 09/19/2002 Outpatient Historical [facility] Family Medicine- [place] [address] [place] [address] Stefano Smith MD [address] [phone] ACUTE URI NOS (Primary Dx) Social History Tobacco Use Types Packs/Day Years Used Date Smoking Tobacco: Never Assessed Comments Unknown Sex and Gender Information Value Date Recorded Sex Assigned at Not on file 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
--- OUTSIDE RECORDS SUMMARY | 2025-01-01 09:39 | XMS_ITS | Encounter Summary ---
Author Organization [facility] Address [address] [place] [address] Care Team Providers Care Community Recreation Coordinator Name Role Phone Hipolito Flores MD Primary Care Provider + Encounter Details Date Type Department Care Team (Late st Contact Info) Description 01/06/2003 Outpatient Historical [facility] Family Medicine- [place] [id number] [place] [address] Stefano Smith MD [address] [phone] Social History Tobacco Use Types Packs/Day Years Used Date Smoking Tobacco: Never Assessed Comments Unknown Sex and Gender Information Value Date Recorded Sex Assigned at Not on file Legal Sex Female 4:32 AM CONTINUOUS PROCESS MACHINE OPERATOR Gender Identity Not on file Sexual Orientation Not on file documented as of this encounter Plan of Treatment Not on file documented as of this encounter Visit Diagnoses Not on filedocumented in this encounter Care Teams Community Recreation Coordinator Relationship Specialty Start Date End Date Hipolito Flores MD PCP - General Family Practice 05/02/11 documented as of this encounter
--- OUTSIDE RECORDS SUMMARY | 2025-01-01 09:39 | XMS_ITS | Encounter Summary ---
Author Organization [facility] Address [address] López: Epic [place] [address] Care Team Providers Care Site Manager Name Role Phone Hipolito Flores MD Primary Care Provider + Encounter Details Date Type Department Care Team (Latest Contact Info) Description 02/11/2001 Emergency Jen Mayers MD NO ADDRESS ON FILE Social History Tobacco Use Types Packs/Day Years Used Date Smoking Tobacco: Never Assessed Comments Unknown Sex and Gender Information Value Date Recorded Sex Assigned at Not on file Legal Sex Female 4:32 AM ERP IMPLEMENTATION CONSULTANT Gender Identity Not on file Sexual Orientation Not on file documented as of this encounter Plan of Treatment Not on file documented as of this encounter Visit Diagnoses Not on filedocumented in this encounter Care Teams Site Manager Relationship Specialty Start Date End Date Hipolito Flores MD PCP - General Family Practice 05/02/11 documented as of this encounter
--- OUTSIDE RECORDS SUMMARY | 2025-01-01 09:39 | XMS_ITS | Encounter Summary ---
Author Organization [facility] Address [address] [place] [address] Care Team Providers Care Alodize Machine Operator Name Role Phone Hipolito Flores MD Primary Care Provider + Encounter Details Date Type Department Care Team (Latest Contact Info) Description 03/17/2003 Outpatient Historical [facility]- [address] [address] Robert Tyler MD [address] [place] [address] CONJUNCTIVITIS NOS (Primary Dx); ACUTE URI NOS; ASTHMA UNSPECIFIED Social History Tobacco Use Types Packs/Day Years Used Date Smoking Tobacco: Never Assessed Comments Unknown Sex and Gender Information Value Date Recorded Sex Assigned at Not on file Legal Sex Female 4:32 AM OPEN END SPINNING OPERATOR Gender Identity Not on file Sexual Orientation Not on file documented as of this encounter Plan of Treatment Not on file documented as of this encounter Visit Diagnoses Diagnosis Conjunctivitis unspecified- Primary Conjunctivitis, unspecified Acute upper respiratory infections of unspecified site Unspecified asthma(493.90) Unspecified asthma documented in this encounter Care Teams Alodize Machine Operator Relationship Specialty Start Date End Date Hipolito Flores MD PCP - General Family Practice 05/02/11 documented as of this encounter
[2025-01-01 10:26] LABS: Hematocrit 36.0 % (36-47); Hemoglobin 12.30 g/dL (11.27-16.99); Mean Corpuscular HGB Conc 34.2 g/dL (30-55); Mean Corpuscular Hemoglobin 27.9 pg (27-33); Mean Corpuscular Volume 81.6 fl (85-98); Nucleated Red Blood Cells % 0 %; Platelet Count 368 10^3/cmm (157-399); Red Blood Count 4.41 10^6/uL (3.85-5.65); White Blood Count 6.27 10^3/uL (3.29-11.43)
[2025-01-01 10:32] LABS: HCG, Serum Qual Negative (Negative)
[2025-01-01 10:39] LABS: Alanine Aminotransferase 13 U/L (0-33); Albumin Level 4.4 g/dL (3.5-5.2); Alkaline Phosphatase 56 U/L (35-105); Anion Gap 13.4 (5-19); Aspartate Amino Transferase 16 U/L (0-32); Blood Urea Nitrogen 13 mg/dL (6-20); Calcium 9.4 mg/dL (8.5-10.5); Carbon Dioxide 26 mmol/L (22-29); Chloride 106 mmol/L (98-107); Creatinine Clr Calc Pharmacy 114.3956; Globulin 2.9 g/dL (1.3-4.6); Glucose 87 mg/dL (65-115); Osmolality Calculated 291 mOsm/kg (285-295); Potassium 4.4 mmol/L (3.5-5.1); Sodium 141 mmol/L (136-145); Total Protein 7.3 g/dL (6.6-8.7)
[2025-01-01 11:07] VITALS: BP 119/86; PULSE 82; RESP 16
--- NOTE | 2025-01-01 11:21 | ED_ITS ---
HPI - Chest Pain 2 General: Chief Complaint: Chest Pain Stated Complaint: CP High BP SOB feels like passing out Time Seen by Provider: 01/01/25 09:34 History of Present Illness: Patient presenting the emergency department with several months of nonspecific chest pain, described as intermittent in nature, pressure-like when it occurs, can occur at rest or during exertion, associated with lightheadedness, she has passed out once but this was at altitude while hiking in [place], she has been diagnosed with pleurisy in the past which felt similar to this, she has also been diagnosed with mild anemia secondary to menorrhagia that has not required transfusion, she was previously recommended prescription iron supplements but is switched to a OTC iron and magnesium gummy due to it being more natural, she denies any other herbal supplementation, she denies smoking, denies drug or alcohol abuse, she has 1 coffee in the morning sometimes no other significant caffeine intake, she does report stress in her life, she denies any leg swelling or calf tenderness, she denies any history of exogenous hormone use, she denies any fevers or chills or cough. no known family cardiac hx before age 50, no hx of htn, hld, dm, cad known to her. 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 Risk Factors: Coronary artery disease risk factors: none Pulmonary embolism risk factors: history of deep vein thrombosis (No hx of DVT or any other DVT/PE risk factors) Related Data Previous Rx's ?Medication ?Instructions ?Recorded hydroxychloroquine 200 mg tablet 200 mg PO BID #60 tab s 08/22/24 prednisone 10 mg tablet See Rx Instructions PO .COMP [place] 08/22/24 PRN joint pain #30 tabs pregabalin 75 mg capsule (Lyrica) 75 mg PO BID #60 cap s 08/22/24 ibuprofen 600 mg tablet 600 mg PO Q6H PRN Pain #30 t abs 01/01/25 Allergies Allergy/AdvReac Type Severity Reaction Status Date / Time Iodinated Contrast Media Allergy Unknown Verified 01/01/25 09:46 [facility] ED 2 PFS: Medical History Fibromyalgia Vitamin D deficiency Iron deficiency anemia Lower abdominal pain Immunization counseling High risk medication use Raised antibody titer SLE (systemic lupus erythematosus related syndrome) Family History Father Colon cancer Grandmother Colon cancer Other Cancer Diabetes Hypertension Uterine cancer Denies family history of Lupus (systemic lupus erythematosus) Rheumatoid arthritis Osteoporosis Congestive heart failure (CHF) Chronic kidney disease (CKD) Stroke Social History Smoking and tobacco/nicotine status: never used tobacco/nicotine Physical Exam 2 Narrative: EXAM NARRATIVE: Gen: A&Ox4, no acute distress, nontoxic appearing HEENT: Normocephalic, atraumatic, no scleral icterus, external ears normal, moist mucous membranes Neck: Supple, full range of motion, no observable masses Lungs: No Respiratory distress, Lungs clear to auscultation bilaterally no rales, rhonchi, wheezing CV: Regular rate and rhythm, no murmur, no pitting edema to lower extremities bilaterally, no rashes to the chest wall or tenderness to palpation of the chest wall Abdomen: Soft, nondistended, nontender to palpation MSK: No joint swelling, FROM all 4 extremities, no leg tenderness or edema, José negative bilaterally Skin: No rashes, petechiae, lesions. Normal color per patient. Neuro: Alert and oriented, no slurred speech, sensation and strength grossly intact all 4 extremities Psych: Appropriate for situation. Course 2 Vital Signs: Vital signs: Vital Signs Temperature 98.3 F 01/01/25 09:35 Pulse Rate 82 01/01/25 11:07 Respiratory Rate 16 01/01/25 11:07 Blood Pressure 119/86 01/01/25 11:07 Pulse Oximetry 99 01/01/25 09:35 Oxygen Delivery Me thod Room Air 01/01/25 09:35 MDM - Chest Pain Medical Decision Making 24-year-old female medical history significant for ADHD on Vyvanse x 3 months, previously on this medication which was discontinued for a period of time, fibromyalgia, positive autoimmune titers possible SLE, presenting to emergency department for intermittent episodes of mild hypertension in the 130s range, intermittent both exertional and nonexertional chest pain, episodes of near syncope, 1 lifetime episode of syncope while hiking at altitude otherwise no episodes of syncope, currently with nonspecific chest pressure like discomfort mild in nature, well-appearing, no muffled heart sounds, heart score low and given symptoms not consistent with cardiac presentation no troponin is indicated, PERC negative, differential also considered pleurisy, pericarditis, no clinical concern for myocarditis, no clinical concern for PE, symptomatic anemia considered but ruled out with labs, significant autoimmune flare/lupus syndrome appears unlikely in the acute phase given normal blood work with no leukocytosis no acidosis no PUJA, plan for trial of NSAIDs, modification of modifiable stress related and poor sleep risk factors, follow-up with PCP for further evaluation. Can consider outpatient cardiology referral but will defer to PCP given patient does not appear to have indication of the presence of a primary cardiac illness at this time. Lab Data Labs with no leukocytosis, no anemia, no acidosis, normal electrolytes, no PUJA, glucose 87 normal, LFTs normal, negative 01/01/25 10:10 01/01/25 10:10 Radiology Impressions Chest X-Ray 01/01/25 09:35 IMPRESSION: No acute chest abnormality. Laboratory Results WBC 6.27 10^3/uL (3.29-11.43) 01/01/25 10:10 RBC 4.41 10^6/uL (3.85-5.65) 01/01/25 10:10 Hgb 12.30 g/dL (11.27-16.99) 01/01/25 10:10 Hct 36.0 % (36-47) 01/01/25 10:10 MCV 81.6 fl (85-98) L 01/01/25 10:10 MCH 27.9 pg (27-33) 01/01/25 10:10 MCHC 34.2 g/dL (30-55) 01/01/25 10:10 RDW 14.9 % (12.1-15.1) 01/01/25 10:10 Plt Count 368 10^3/cmm (157-399) 01/01/25 10:10 MPV 9.4 fL (7.4-10.4) 01/01/25 10:10 Neut % (Auto) 62.4 % 01/01/25 10:10 Lymph % (Auto) 28.1 % 01/01/25 10:10 [place] % (Auto) 7.5 % 01/01/25 10:10 Eos % (Auto) 1.1 % 01/01/25 10:10 Baso % (Auto) 0.6 % 01/01/25 10:10 Neut # (Auto) 3.91 10^3/uL (1.8-7.7) 01/01/25 10:10 Lymph # (Auto) 1.8 10^3/uL (0.8-4.8) 01/01/25 10:10 [place] # (Auto) 0.5 10^3/uL (0.2-0.9) 01/01/25 10:10 Eos # (Auto) 0.1 10^3/uL (0.0-0.8) 01/01/25 10:10 Baso # (Auto) 0.0 10^3/uL (0.0-0.1) 01/01/25 10:10 Nucleated RBC % (auto) 0 % 01/01/25 10:10 Nucleated RBCs # 0.0 /100WBC 01/01/25 10:10 Sodium 141 mmol/L (136-145) 01/01/25 10:10 Potassium 4.4 mmol/L (3.5-5.1) 01/01/25 10:10 Chloride 106 mmol/L (98-107) 01/01/25 10:10 Carbon Dioxide 26 mmol/L (22-29) 01/01/25 10:10 Anion Gap 13.4 (5-19) 01/01/25 10:10 BUN 13 mg/dL (6-20) 01/01/25 10:10 Creatinine 0.7 mg/dL (0.5-0.9) 01/01/25 10:10 GFR Calculation 102.8 mL/min (90-130) 01/01/25 10:10 Glucose 87 mg/dL (65-115) 01/01/25 10:10 Calculated Osmolality 291 mOsm/kg (285-295) 01/01/25 10:10 Calcium 9.4 mg/dL (8.5-10.5) 01/01/25 10:10 Total Bilirubin 0.3 mg/dL (0.15-1.2) 01/01/25 10:10 AST 16 U/L (0-32) 01/01/25 10:10 ALT 13 U/L (0-33) 01/01/25 10:10 Alkaline Phosphatase 56 U/L (35-105) 01/01/25 10:10 Total Protein 7.3 g/dL (6.6-8.7) 01/01/25 10:10 Albumin 4.4 g/dL (3.5-5.2) 01/01/25 10:10 Globulin 2.9 g/dL (1.3-4.6) 01/01/25 10:10 HCG, Qual Negative (Negative) 01/01/25 10:10 All radiology interpretation(s) finalized by discharge ED provider radiology interpretation(s): Chest x-ray negative for pneumonia, pneumothorax, consolidation, pleural effusion/pulmonary edema, cardiomegaly EKG Data EKG 1: I personally reviewed and interpreted this EKG as follows: EKG interpretation date: 01/01/25 EKG interpretation time: 09:39 Interpretation: Sinus rhythm at 87 bpm, no STEMI, no ectopy, borderline left atrial enlargement, normal axis, QTc 424, no [id number] Discharge Plan Discharge Patient Disposition: Home Clinical Impression: Atypical chest pain Condition: Stable Prescriptions: New ibuprofen 600 mg tablet 600 mg PO Q6H PRN (Reason: Pain) Qty: 30 0RF No Action prednisone 10 mg tablet See Rx Instructions PO .COMPLEX PRN (Reason: joint pain) Qty: 30 1RF Rx Instructions: take 1 or 2 tab daily up to 7 days prn joint pain flare PO PRN; hydroxychloroquine 200 mg tablet 200 mg PO BID Qty: 60 3RF pregabalin [Lyrica] 75 mg capsule 75 mg PO BID Qty: 60 3RF Discharge Orders: Discharge ED (Routine); Ordered 01/01/25 Ordered By: Austyn Preciado Referrals: Jeff Valentine MD [Primary Care Provider] Patient Instructions: Chest Pain (ED), Patient Portal & Richard Instructions Print Language: Congolese Coding 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
== END 2025-01-01 11:35 | disposition home or self-care (01) ==
PROVIDERS: Family Medicine; Emergency Provider Student in an Organized Health Care Education/Training Program; PCP Family Medicine
DX: R07.89 Other chest pain (principal)
CPT/HCPCS: 36415; 71045; 80053; 84703; 85025; 93005; 99285

== ENCOUNTER 2025-01-01 15:18 | Outpatient (CLI) | payer OTHER, SELFPAY ==
--- NOTE | 2025-01-01 15:26 | USR_ITS ---
PROCEDURE INFORMATION: Exam: US Duplex Left Lower Extremity Arteries Or Arterial Bypass Grafts Exam date and time: 01/01/2025 3:36 PM Age: 24 years old Clinical indication: Pain; Leg, lower; Left; Additional info: Pain in lower leg TECHNIQUE: Imaging protocol: Left Real-time duplex scan of the arteries or arterial bypass grafts of the left lower extremity with 2-D marin scale, color Doppler flow and spectral waveform analysis. Images documented and saved. COMPARISON: CT kidney stone [id number] 07/18/2024 4:17 AM FINDINGS: Left common femoral artery: No occlusion or significant stenosis. Normal waveform. Left superficial femoral artery: No occlusion or significant stenosis. Normal waveform. Left popliteal artery: No occlusion or significant stenosis. Normal waveform. Left calf/foot arteries: No occlusion or significant stenosis in the visualized arteries. Normal waveforms. Dorsalis pedis artery is patent. US/CV arterial duplex [facility] [id number] IMPRESSION: No stenosis or occlusion.
== END 2025-01-01 15:19 | disposition home or self-care (01) ==
LOC: RAD 15:21
PROVIDERS: PCP Family Medicine; Visit Provider Family Medicine
DX: M79.662 Pain in left lower leg (principal)
CPT/HCPCS: 93926